=== PATIENT | male | born 1975 | race Caucasian/White ===

== ENCOUNTER → 2018-02-16 | Outpatient (CLI) | payer BC, OTHER ==
--- NOTE | 2018-02-16 12:22 | DIAGNOSTIC IMAGING REPORT ---
R FOOT MIN 3 VIEWS CLINICAL HISTORY: Right foot pain. COMPARISON: None FINDINGS: Alignment of the right foot is anatomic. Tarsometatarsal joints are intact. There is mild plantar calcaneal spurring. 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 No fracture or suspicious lesion is identified. Mild osteophytosis of the right first metatarsophalangeal joint is noted. IMPRESSION: 1. No acute fracture or dislocation within the right foot. 2. 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 3. Minimal plantar calcaneal spurring. Electronically signed by: Aroldo Watson M.D. 02/16/2018 12:20 PM Dictated Date/Time: 02/16/2018 12:19 PM
== END | disposition home or self-care (01) ==
LOC: C.RDSM 10:47
PROVIDERS: ATTEND Family Medicine
DX: M19.071 Primary osteoarthritis, right ankle and foot (principal)